=== PATIENT | female | born 1975 | race Caucasian/White ===

== ENCOUNTER 2016-12-02 07:46 | Emergency (ER) | payer SELFPAY ==
[~2016-12-02] VITALS: Ht 170.2 cm; Wt 65.0 kg
[~2016-12-02 07:46] MED LIST: ALBU6.7H INH; BENZ100 PO; CEFU1TAB43 PO; SERO50TA4 PO; TRAM50 PO
[2016-12-02 07:52] VITALS: BP 121/90; PULSE 86; RESP 16; TEMP 98; O2SAT 97
[2016-12-02] MEDS ORDERED: SODIUM CHLOR 0.9% 1000 ML INJ 1,000 ML IV SCH (08:14)
[2016-12-02] MEDS ORDERED: PROMETHAZINE INJ 25 MG/ML VIAL IM ONE (08:15)
[2016-12-02] MEDS ORDERED: SODIUM CHLORIDE 0.9% FLUSH 5 ML FLUSH IVF PRN (08:15)
--- NOTE | 2016-12-02 08:20 | PD ---
HPI Chief Complaint: GI Complaint Time Seen by Provider: 08:08 Travel History International Travel<30 days: No Contact w/Intl Traveler<30days: No Traveled to known affect area: No History of Present Illness HPI 41-year-old female complains of abdominal pain nausea vomiting and body ache. Patient states that the symptoms started 3 days ago, got better and get worse again since yesterday. Patient states the abdominal pain is cramping pain and sharp pain mostly lower abdomen and bilateral flank area. Patient denies any pain radiation. Patient denies any fever chills. Patient denies any dysuria or frequency. Patient denies any vaginal discharge or bleeding. Patient states that her menstruation period has been irregular. On a scale of 1-10 the pain is a 3. PFSH Past Medical History Hx Anticoagulant Therapy: No Arthritis: No Blood Disorders: No Bipolar Disorder: Yes Anxiety: Yes Heart Rhythm Problems: No Cancer: No Cardiovascular Problems: Yes High Cholesterol: No Chemotherapy: No Chest Pain: Yes Congestive Heart Failure: No Diabetes: No Diminished Hearing: No Endocrine: No Gastrointestinal Disorders: Yes GERD: No Glaucoma: No Genitourinary: Yes (PATIENT BORN WITH ONE OVARY) Hepatitis: No Hiatal Hernia: No Hypertension: No Immune Disorder: No Kidney Stones: No Musculoskeletal: Yes Neurologic: No Psychiatric: Yes (BIPOLAR) Reproductive: No Respiratory: No Migraines: Yes Myocardial Infarction: No Pancreatitis: No Radiation Therapy: No Renal Failure: No Thyroid Disease: No Ulcer: Yes ?: Unknown : 1 Para: 0 Miscarriage: 0 : 1 Past Surgical History Abdominal Surgery: Yes (CHOLECYSTECTOMY) AICD: No Appendectomy: No Arteriovenous Shunt: No Cardiac Surgery: No Cholecystectomy: Yes Ear Surgery: No Endocrine Surgery: No Eye Surgery: No Genitourinary Surgery: No Gynecologic Surgery: Yes (D/C) Insulin Pump: No Joint Replacement: No Oral Surgery: Yes Pacemaker: No Thoracic Surgery: No Other Surgery: Yes Social History Alcohol Use: Yes (RARELY) Tobacco Use: No Substance Use: No Allergies-Medications (Allergen,Severity, Reaction): Coded Allergies: Ativan (Verified Allergy, Severe, CONFUSION-BLACKS OUT, 12/02/16) Zofran (Verified Allergy, Severe, HEADACHE, 12/02/16) Codeine (Verified Allergy, Intermediate, NAUSEA, HEADACHE, 12/02/16) Penicillin (Verified Allergy, Mild, A CHILD; VOMITING, 12/02/16) Morphine (Verified Adverse Reaction, Severe, SEVERE HEADACHE, 12/02/16) Reported Meds & Prescriptions Reported Meds & Active Scripts Active Ultram (Tramadol HCl) 50 Mg Tab 50 Mg PO Q6H PRN Mobic (Meloxicam) 15 Mg Tab 15 Mg PO DAILY Bactrim DS (Sulfamethoxazole-Trimethoprim) 800-160 Mg Tab 1 Tab PO BID Review of Systems General / Constitutional: No: Fever Eyes: No: Visual changes HENT: No: Headaches Cardiovascular: No: Chest Pain or Discomfort Respiratory: No: Shortness of Breath Gastrointestinal: Positive: Nausea, Vomiting, Abdominal Pain Genitourinary: No: Dysuria Musculoskeletal: No: Pain Skin: No Rash Neurologic: No: Weakness Psychiatric: No: Depression Endocrine: No: Polydipsia Hematologic/Lymphatic: No: Easy Bruising Physical Exam Narrative GENERAL: Well-nourished, well-developed patient. SKIN: Warm and dry. HEAD: Normocephalic. EYES: No scleral icterus. No injection or drainage. NECK: Supple, trachea midline. No JVD or lymphadenopathy. CARDIOVASCULAR: Regular rate and rhythm without murmurs, gallops, or rubs. RESPIRATORY: Breath sounds equal bilaterally. No accessory muscle use. GASTROINTESTINAL: Abdomen soft, nondistended. Patient has mild to moderate tenderness on palpation lower abdomen suprapubic area. No rebound tenderness. No mass. MUSCULOSKELETAL: No cyanosis, or edema. BACK: Nontender without obvious deformity. No CVA tenderness. MUSCULOSKELETAL: No cyanosis, or edema. BACK: Nontender without obvious deformity. No CVA tenderness. [employer] exam: Patient has moderate amount of whitish discharge in the vaginal vault. No cervical motion tenderness. Uterus is nonenlarged with moderate tenderness on palpation. No adnexal mass or tenderness. Data Data Last Documented VS Vital Signs Date Time Temp Pulse Resp B/P Pulse Ox O2 Delivery O2 Flow Rate FiO2 12/02/16 11:09 16 12/02/16 10:18 77 124/75 98 Room Air 12/02/16 07:52 98.0 Orders Complete Blood Count With Diff (12/02/16 08:14) Comprehensive Metabolic Panel (12/02/16 08:14) Lipase (12/02/16 08:14) Urinalysis - C+S If Indicated (12/02/16 08:14) Ct Abd/Pel W Iv Contrast(Rout) (12/02/16 08:14) Iv Access Insert/Monitor (12/02/16 08:14) Ecg Monitoring (12/02/16 08:14) Oximetry (12/02/16 08:14) Sodium Chlor 0.9% 1000 Ml Inj (Ns 1000 M (12/02/16 08:14) Sodium Chloride 0.9% Flush (Ns Flush) (12/02/16 08:15) Ed Urine Pregnancytest Poc (12/02/16 08:14) Promethazine Inj (Phenergan Inj) (12/02/16 08:15) Urine Culture (12/02/16 08:20) Gc And Chlamydia Pcr (12/02/16 08:53) Wet Prep Profile (12/02/16 08:53) Iohexol 300 Inj (Rad Ct) (Omnipaque 300 (12/02/16 09:27) Ceftriaxone Inj (Rocephin Inj) (12/02/16 09:45) Azithromycin Powd Pack (Zithromax Powd P (12/02/16 10:00) Ketorolac Inj (Toradol Inj) (12/02/16 10:00) Al-Mag Hy-Si 40-40-4 Mg/Ml Liq (Mag-Al P (12/02/16 10:45) Vcfqq-Clctav-Brcvin-Pb Liq ( Liq (12/02/16 10:45) Pantoprazole Inj (Protonix Inj) (12/02/16 10:45) Labs Laboratory Tests Test 12/02/16 12/02/16 12/02/16 08:20 08:23 09:05 Urine Collection Type CLEAN CATCH Urine Color YELLOW Urine Turbidity SLIGHT Urine pH 8.0 Urine Specific Barnard 1.021 Urine Protein TRACE mg/dL Urine Glucose (UA) NEG mg/dL Urine Ketones 40 mg/dL Urine Occult Blood NEG Urine Nitrite NEG Urine Bilirubin NEG Urine Leukocyte Esterase MOD Urine RBC 0-3 /hpf Urine WBC 20-24 /hpf Urine Squamous Epithelial > 8 /hpf Cells Urine Amorphous Sediment FEW Urine Bacteria FEW /hpf Microscopic Urinalysis Comment CULTURE INDICATED Urine Collection Time 08:20 White Blood Count 11.5 TH/MM3 Red Blood Count 5.34 MIL/MM3 Hemoglobin 16.2 GM/DL Hematocrit 50.4 % Mean Corpuscular Volume 94.3 FL Mean Corpuscular Hemoglobin 30.3 PG Mean Corpuscular Hemoglobin 32.1 % Concent Red Cell Distribution Width 12.7 % Platelet Count 358 TH/MM3 Mean Platelet Volume 8.4 FL Neutrophils (%) (Auto) 75.7 % Lymphocytes (%) (Auto) 15.9 % Monocytes (%) (Auto) 6.0 % Eosinophils (%) (Auto) 1.8 % Basophils (%) (Auto) 0.6 % Neutrophils # (Auto) 8.7 TH/MM3 Lymphocytes # (Auto) 1.8 TH/MM3 Monocytes # (Auto) 0.7 TH/MM3 Eosinophils # (Auto) 0.2 TH/MM3 Basophils # (Auto) 0.1 TH/MM3 CBC Comment DIFF FINAL Differential Comment Sodium Level 137 MEQ/L Potassium Level 4.1 MEQ/L Chloride Level 103 MEQ/L Carbon Dioxide Level 24.6 MEQ/L Anion Gap 9 MEQ/L Blood Urea Nitrogen 16 MG/DL Creatinine 1.00 MG/DL Estimat Glomerular Filtration 62 ML/MIN Rate Random Glucose 87 MG/DL Calcium Level 9.0 MG/DL Total Bilirubin 0.9 MG/DL Aspartate Amino Transf 26 U/L (AST/SGOT) Alanine Aminotransferase 53 U/L (ALT/SGPT) Alkaline Phosphatase 112 U/L Total Protein 7.7 GM/DL Albumin 4.2 GM/DL Lipase 117 U/L Clue Cells (Wet Prep) NONE SEEN Vaginal Trichomonas (Wet Prep) NONE SEEN Vaginal Yeast (Wet Prep) NONE SEEN MDM Medical Decision Making Medical Screen Exam Complete: Yes Emergency Medical Condition: Yes Interpretation(s) Last Impressions Abdomen/Pelvis CT 12/02/16 0814 Signed Impressions: Service Date/Time: Friday, December 02, 2016 09:20 - CONCLUSION: 1. No acute intra-abdominal process. 2. Tiny bilateral renal cysts. Corey Cain MD 9:49 AM. CBC WBC 11.5. Hemoglobin 16.2 hematocrit 50.4. 75 neutrophil. CMP within normal limit. UA positive for WBC and bacteria. Wet prep negative. GC chlamydia PCR pending. Differential Diagnosis Differential diagnosis including gastritis, PUD, pancreatitis, cholecystitis, colitis, UTI, pyelonephritis, appendicitis, PID, ovarian cyst, ovarian torsion, ectopic . Narrative Course 41-year-old female with low abdominal pain, bilateral flank pain, nausea vomiting. Normal saline solution 1 25 cc an hour. Phenergan 25 mg IM. Rocephin 1 g IV. Zithromax 1 g by mouth. Diagnosis Primary Impression: Cervicitis Additional Impression: UTI (urinary tract infection) Qualified Code: N30.00 - Acute cystitis without hematuria Patient Instructions: General Instructions Additional Instructions: Take medications as directed. Follow-up with personal physician. Return if persistent problem or worse. Med/Other Pt SpecificInfo: Prescription(s) given Scripts Promethazine (Phenergan)25 Mg Tab25 Mg PO Q6H PRN (Nausea/Vomiting) #10 TAB Ref 0 Prov:Neri Benites MD 12/02/16 Tramadol (Ultram)50 Mg Tab50 Mg PO Q6H PRN (PAIN) #12 TAB Prov:Neri Benites MD 12/02/16 Meloxicam (Mobic)15 Mg Tab15 Mg PO DAILY #14 TAB Prov:Neri Benites MD 12/02/16 Sulfamethoxazole-Trimethoprim (Bactrim DS)800-160 Mg Tab1 Tab PO BID #14 TAB Prov:Neri Benites MD 12/02/16 Disposition: 01 DISCHARGE HOME Condition: Stable Neri Benites MD Dec 02, 2016 08:20
[2016-12-02 08:31] LABS: AUTOMATED NEUTROPHIL # 8.7 TH/MM3 (1.8-7.7); BASOPHIL # 0.1 TH/MM3 (0-0.2); BASOPHIL % 0.6 % (0.0-2.0); EOSINOPHIL # 0.2 TH/MM3 (0-0.4); EOSINOPHIL % 1.8 % (0.0-4.0); HEMATOCRIT 50.4 % (35.0-46.0); LYMPH % 15.9 % (9.0-44.0); LYMPHOCYTE # 1.8 TH/MM3 (1.0-4.8); MEAN CELL VOLUME 94.3 FL (80.0-100.0); MEAN CORPUSCULAR HEMOGLOBIN 30.3 PG (27.0-34.0); MEAN CORPUSCULAR HGB CONC 32.1 % (32.0-36.0); NEUT % 75.7 % (16.0-70.0); PLATELET COUNT 358 TH/MM3 (150-450); RED BLOOD COUNT 5.34 MIL/MM3 (4.00-5.30); RED CELL DISTRIBUTION WIDTH 12.7 % (11.6-17.2); WHITE BLOOD COUNT 11.5 TH/MM3 (4.0-11.0)
[2016-12-02 08:32] LABS: BLOOD, URINE NEG (NEG); GLUCOSE,URINE NEG (NEG); KETONE, URINE 40 mg/dL (NEG); NITRITE,URINE NEG (NEG)
[2016-12-02 08:36] LABS: METHOD OF COLLECTION CLEAN CATCH; URINE COLOR YELLOW (YELLW/STRAW)
[2016-12-02 08:37] LABS: BACTERIA, URINE FEW /hpf; COMMENT (UR) CULTURE INDICATED; CULTURE IF INDICATED CULTURE INDICATED; RBC, URINE 0-3 /hpf (0-3); SQUAMOUS EPITHELIAL CELL URINE > 8 /hpf (0-5)
[2016-12-02 08:39] LABS: HEMO FLAGS DIFF FINAL
[2016-12-02 08:41] LABS: CHLORIDE 103 MEQ/L (98-107); POTASSIUM 4.1 MEQ/L (3.5-5.1); SODIUM (NA) 137 MEQ/L (136-145)
[2016-12-02 08:45] LABS: ANION GAP 9 MEQ/L (5-15); BICARBONATE 24.6 MEQ/L (21.0-32.0); BLOOD UREA NITROGEN 16 MG/DL (7-18)
[2016-12-02 08:48] LABS: ALT (GPT) 53 U/L (10-53); AST (GOT) 26 U/L (15-37); GLOMERULAR FILTRATION RATE 62 ML/MIN (>89)
[2016-12-02 08:50] VITALS: RESP 16; O2SAT 97
[2016-12-02 08:50] LABS: TOTAL BILIRUBIN ADULT 0.9 MG/DL (0.2-1.0)
[2016-12-02 08:51] LABS: ALKALINE PHOSPHATASE 112 U/L (45-117)
[2016-12-02 09:12] VITALS: BP 133/84; PULSE 79; RESP 16; O2SAT 99
[2016-12-02] MEDS ORDERED: IOHEXOL 300 MG/ML 100 ML BTL (for Rad CT) IV ONE (09:27)
--- NOTE | 2016-12-02 09:40 | RADHPO ---
EXAM DATE/TIME: 12/02/2016 09:20 [facility] COMPARISON: No previous studies available for comparison. INDICATIONS : Bilateral flank and lower abdominal pain. IV CONTRAST: 90 cc Omnipaque 300 (iohexol) IV ORAL CONTRAST: No oral contrast ingested. RADIATION DOSE: 5.25 CTDIvol (mGy) MEDICAL HISTORY : None SURGICAL HISTORY : Cholecystectomy. ENCOUNTER: Initial ACUITY: 4 - 6 days PAIN SCALE: 2/10 LOCATION: Bilateral flank TECHNIQUE: Volumetric scanning of the abdomen and pelvis was performed. Using automated exposure control and ad justment of the mA and/or kV according to patient size, radiation dose was kept as low as reasonably achievable to obtain optimal diagnostic quality images. FINDINGS: LOWER LUNGS: The visualized lower lungs are clear. Breast implants are intact. LIVER: Homogeneous density without lesion. There is no dilation of the biliary tree. No calcified gallston es. Status post cholecystectomy. SPLEEN: Normal size without lesion. PANCREAS: Within normal limits. KIDNEYS: Normal in size and shape. There is no solid mass, stone or hydronephrosis. There is a 1.0 cm upper p ole left renal cyst and a 0.8 cm lower pole right renal cyst. ADRENAL GLANDS: Within normal limits. VASCULAR: There is no aortic aneurysm. BOWEL/MESENTERY: The stomach, small bowel, and colon demonstrate no acute abnormality. There is no free intraperitone al air or fluid. ABDOMINAL WALL: Within normal limits. RETROPERITONEUM: There is no lymphadenopathy. BLADDER: No wall thickening or mass. REPRODUCTIVE: Within normal limits. INGUINAL: There is no lymphadenopathy or hernia. MUSCULOSKELETAL: Within normal limits for patient age. CONCLUSION: 1. No acute intra-abdominal process. 2. Tiny bilateral renal cysts. Corey Cain MD on December 02, 2016 at 9:31 Board Certified Radiologist. This report was verified electronically.
[2016-12-02] MEDS ORDERED: cefTRIAXone INJ 1,000 MG in SODIUM CHLORIDE 0.9% INJ 100 ML IV ONE (09:45)
[2016-12-02] MEDS ORDERED: ULTR50TA5 PO (09:54)
[2016-12-02] MEDS ORDERED: BACT800T5 PO (09:54)
[2016-12-02] MEDS ORDERED: MOBI15TA PO (09:54)
[2016-12-02] MEDS ORDERED: AZITHROMYCIN PWD FOR SUSP 1 GM PACKET PO ONE (10:00)
[2016-12-02] MEDS ORDERED: KETOROLAC TROMETHAMINE 30 MG/ML (IVP) VIAL IV PUSH ONE (10:00)
[2016-12-02 10:18] VITALS: BP 124/75; PULSE 77; RESP 16; O2SAT 98
[2016-12-02] MEDS ORDERED: ALUMINUM/MAGNESIUM/SIMETH 30 ML CUP PO ONE (10:45)
[2016-12-02] MEDS ORDERED: ATROPINE/SCOPOLAM/HYOSCYAM/PB ELIXIR 10 ML CUP PO ONE (10:45)
[2016-12-02] MEDS ORDERED: PANTOPRAZOLE SODIUM 40 MG VIAL IV PUSH ONE (10:45)
[2016-12-02 11:09] VITALS: RESP 16
[2016-12-02] MEDS ORDERED: PROM25TA5 PO (11:17)
[2016-12-02 15:33] LABS: CHLAMYDIA PCR NOT DETECTED (NOT DETECT); NEISSERIA PCR NOT DETECTED (NOT DETECT)
== END 2016-12-02 11:28 | disposition home or self-care (01) ==
LOC: PHED 07:46
DX: N72 Inflammatory disease of cervix uteri (principal); N30.00 Acute cystitis without hematuria; B96.20 Unspecified Escherichia coli [E. coli] as the cause of diseases classified elsewhere
CPT/HCPCS: 74177; 80053; 81001; 83690; 84703; 85025; 87077; 87086; 87186; 87210; 87491; 87591; 96361; 96365; 96372; 96375; 99284; C9113; J0696; J1885; J2550; J7030; Q9967